=== PATIENT | female | born 1955 | race Caucasian/White ===

== ENCOUNTER → 2016-09-13 | Outpatient (CLI) | payer BC ==
[~2016-09-13] MED LIST: CHOL100027 PO; EFFSR150 PO; METO1TAB54 PO; MTR600X PO; MXZC25 PO; OXYC-409 PO; OXYC7.5T78 PO
[2016-09-13 16:16] VITALS: BP 142/82; PULSE 80; Ht 7.6 cm
== END | disposition home or self-care (01) ==
LOC: C.NEUR 15:28
PROVIDERS: ATTEND Internal Medicine Pulmonary Disease
DX: G47.33 Obstructive sleep apnea (adult) (pediatric) (principal)

== ENCOUNTER → 2016-11-01 | Outpatient (CLI) | payer BC ==
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
== END | disposition home or self-care (01) ==
LOC: C.RADBC 09:11
PROVIDERS: ATTEND Family Medicine
DX: R07.81 Pleurodynia (principal)

== ENCOUNTER → 2017-09-12 | Outpatient (CLI) | payer BC ==
[2017-09-12 13:09] LABS: HEMATOCRIT 40.6 % (37-47); HEMOGLOBIN 13.5 g/dL (12.0-16.0); MEAN CELL VOLUME 90.8 fL (80-100); MEAN CORPUSCULAR HEMOGLOBIN 30.2 pg (25-34); MEAN CORPUSCULAR HGB CONC 33.3 g/dl (32-36); PLATELET COUNT 284 K/uL (130-400); RED CELL DISTRIBUTION WIDTH CV 14.1 % (11.5-14.5); WHITE BLOOD COUNT 5.35 K/uL (4.8-10.8)
[2017-09-12 13:53] LABS: ALBUMIN 3.5 gm/dl (3.4-5.0); ALT/SGPT 29 U/L (12-78); BLOOD UREA NITROGEN 14 mg/dl (7-18); CALCIUM 9.9 mg/dl (8.5-10.1); CARBON DIOXIDE 29 mmol/L (21-32); CHOLESTEROL 258 mg/dl (0-200); CREATININE 0.69 mg/dl (0.60-1.20); GLUCOSE 97 mg/dl (70-99); SODIUM 140 mmol/L (136-145)
[2017-09-12 14:01] LABS: ALKALINE PHOSPHATASE 138 U/L (45-117); AST/SGOT 16 U/L (15-37); LDL CHOLESTEROL CALCULATED 174 mg/dl; TOTAL PROTEIN 7.1 gm/dl (6.4-8.2)
== END | disposition home or self-care (01) ==
LOC: C.LAB1850 10:21
PROVIDERS: ATTEND Internal Medicine
DX: Z00.00 Encounter for general adult medical examination without abnormal findings (principal); I10 Essential (primary) hypertension; E78.5 Hyperlipidemia, unspecified

== ENCOUNTER → 2017-09-15 | Outpatient (CLI) | payer BC ==
[2017-09-15 15:42] VITALS: BP 125/85; PULSE 78; Ht 160 cm
== END | disposition home or self-care (01) ==
LOC: C.NEUR 12:50
PROVIDERS: ATTEND Physician Assistant
DX: G47.33 Obstructive sleep apnea (adult) (pediatric) (principal)

== ENCOUNTER → 2018-04-03 | Outpatient (CLI) | payer BC ==
[~2018-04-03] MED LIST changes: -CHOL100027 PO; +CHOL1TAB42 PO; -EFFSR150 PO; -METO1TAB54 PO; -OXYC-409 PO; -OXYC7.5T78 PO; +VENL150C56 PO
[2018-04-03 17:15] LABS: BASO % 0.3 %; BASO ABS # 0.02 K/uL (0-0.2); EOS % 2.9 %; EOS ABS # 0.19 K/uL (0-0.5); HEMATOCRIT 40.4 % (37-47); HEMOGLOBIN 13.1 g/dL (12.0-16.0); LYMPH % 21.9 %; LYMPH ABS # 1.41 K/uL (1.2-3.4); MEAN CELL VOLUME 91.8 fL (80-100); MEAN CORPUSCULAR HEMOGLOBIN 29.8 pg (25-34); MEAN CORPUSCULAR HGB CONC 32.4 g/dl (32-36); MEAN PLATELET VOLUME 10.7 fL (7.4-10.4); MONO ABS # 0.39 K/uL (0.11-0.59); NEUT % 68.9 %; NEUT ABS # 4.44 K/uL (1.4-6.5); PLATELET COUNT 297 K/uL (130-400); RED CELL DISTRIBUTION WIDTH CV 14.1 % (11.5-14.5); RED CELL DISTRIBUTION WIDTH SD 47.5 fL (36.4-46.3); WHITE BLOOD COUNT 6.45 K/uL (4.8-10.8)
[2018-04-03 17:25] LABS: PTT PATIENT 28.3 SECONDS (21.0-31.0)
[2018-04-03 17:29] LABS: POTASSIUM 3.8 mmol/L (3.5-5.1)
== END | disposition home or self-care (01) ==
LOC: C.LABBC 12:43
PROVIDERS: ATTEND Physician Assistant
DX: H90.3 Sensorineural hearing loss, bilateral (principal)

== ENCOUNTER → 2018-04-07 | Outpatient (CLI) | payer BC ==
[~2018-04-07] MED LIST changes: +GADAVIST IV PRN
--- NOTE | 2018-04-07 13:45 | DIAGNOSTIC IMAGING REPORT ---
Brain and temporal bone MRI WITH AND WITHOUT CONTRAST HISTORY: H90.3 Sensorineural hearing loss (SNHL) of both [id number] TECHNIQUE: Multiplanar multisequence MRI of the brain was performed both before and after the intravenous administration of contrast. COMPARISON STUDY: None. FINDINGS: There are no areas of restricted diffusion to suggest acute infarction. The midline structures are intact. The paranasal sinuses are clear. The mastoid air cells are clear. The ventricles and sulci are within normal limits for age. There is no mass, hematoma, midline shift. The major vascular flow-voids at the skull base are well maintained. Postcontrast sequences show no areas of abnormal enhancement. There is near nondiagnostic evaluation of the postcontrast images through the internal auditory canals due to the motion artifact. However, no definite enhancement identified. No masses within the internal auditory canals. The 7th and 8th cranial nerves are normal and course and caliber. No evidence for inner ear dysplasia. IMPRESSION: 1. No acute intracranial abnormality. 2. No significant abnormality within the internal auditory canals. Electronically signed by: Kelby Watson M.D. 04/07/2018 1:43 PM Dictated Date/Time: 04/07/2018 1:29 PM
== END | disposition home or self-care (01) ==
LOC: C.MRIBC 12:09
DX: H90.3 Sensorineural hearing loss, bilateral (principal)

== ENCOUNTER → 2018-04-07 | Outpatient (CLI) | payer BC ==
[~2018-04-07] MED LIST changes: -GADAVIST IV PRN
[2018-04-07 10:03] LABS: BLOOD UREA NITROGEN 21 mg/dl (7-18); CREATININE 0.85 mg/dl (0.60-1.20)
== END | disposition home or self-care (01) ==
LOC: C.LAB 07:52
PROVIDERS: ATTEND Physician Assistant
DX: H90.3 Sensorineural hearing loss, bilateral (principal)